=== PATIENT | male | born 1995 | race Hispanic/Latino ===

== ENCOUNTER 2022-01-07 13:10 | Emergency (ER) | payer OTHER ==
[~2022-01-07] VITALS: Ht 167.6 cm; Wt 92.1 kg
[2022-01-07] MEDS ORDERED: BACITRACIN ZINC 0.9GM TP ONE (14:00)
[2022-01-07] MEDS ORDERED: DIPHTH/TETANUS/ACEL. PERTUSSIS 0.5 ML SYR IM ONE (14:00)
[2022-01-07 14:23] VITALS: BP 134/82
== END 2022-01-07 15:03 | disposition home or self-care (01) ==
LOC: ER 13:25
DX: S61.210A Laceration without foreign body of right index finger without damage to nail, initial encounter (principal); W26.0XXA Contact with knife, initial encounter; Y92.89 Other specified places as the place of occurrence of the external cause
CPT/HCPCS: 90714; 99284